=== PATIENT | male | born 1965 | race Caucasian/White ===

== ENCOUNTER 2024-08-11 09:02 | Day surgery (SDC) | payer OTHER ==
[2024-08-08 14:51] VITALS: BMI 32.3
[2024-08-11 12:07] VITALS: TEMP 97.1
[2024-08-11 12:12] VITALS: BP 118/82; PULSE 76; RESP 20
== END 2024-08-11 12:12 | disposition home or self-care (01) ==
LOC: FASU-ENDO 09:02
PROVIDERS: ATTEND Internal Medicine Gastroenterology
PROC: 0DBL8ZX Excision of Transverse Colon, Via Natural or Artificial Opening Endoscopic, Diagnostic (ICD-10-PCS; principal; 2024-08-11 10:55)
DX: Z12.11 Encounter for screening for malignant neoplasm of colon (principal); D12.3 Benign neoplasm of transverse colon; K64.1 Second degree hemorrhoids; K64.8 Other hemorrhoids; K57.30 Diverticulosis of large intestine without perforation or abscess without bleeding
CPT/HCPCS: 88305-TC